=== PATIENT | female | born 1955 | race Caucasian/White ===

== ENCOUNTER 2016-05-03 16:46 | Emergency (ER) | payer BC ==
--- NOTE | 2016-05-03 17:05 | PDOC ---
Chest Pain HPI - General Chief Complaint: Respiratory Complaint Stated Complaint: LEFT SIDE PAIN/ COUGH Date Seen by Provider: 05/03/16 Time Seen by Provider: 17:05 Source: Patient Exam Limitations: POSITIVE: No limitations Treatment Prior to Arrival: REPORTS: None Nurse's Notes Reviewed & Considered: Yes - History of Present Illness Initial Comments: Patient comes today with chief complaint of left lateral chest wall pain. Patient with left lateral chest wall pain that is tender to palpation which began actually 2 days ago and is getting worse. Patient does not remember injuring her side, and has done no out of work to cause the problem. He does have a history of similar symptoms but was finally diagnosed as a pulmonary embolism a few years ago. She was on blood thinners for approximately a year at that time and is no longer on them. At this time she denies any fever or chills sweats, she does have nausea but no vomiting or diarrhea, no hematuria or dysuria, she has shortness of breath associated with pain upon respirations but no shortness of breath while sitting. She does have a cough. Body Location Affected: REPORTS: Chest Timing: REPORTS: Constant, Getting Worse Duration: >24 hours Severity: Moderate Context: REPORTS: Other (Movement) Quality: REPORTS: "Pain", Sharpness, Stabbing, Throbbing Radiation: REPORTS: None Associated Symptoms: REPORTS: Nausea Modifying Factors: improves with: Sitting up Similar Symptoms Previously: Yes Recently seen/treated/hospitalized: No Any Prior Injuries Related to Current Complaint?: No - Patient Home Medications Home Medications: Home Medications Nicotine [Nicotine Patch] 14 mg TD QD #14 patch 08/27/14 Simvastatin 1 tab PO DAILY #30 tab 06/19/15 Albuterol Sulfate [Proair Hfa] 1 - 2 puff INH Q4H #1 inhaler 02/05/16 Albuterol/Ipratropium Inhaler [Combivent Respimat Inhaler] 1 puff INH QID #1 puff 02/08/16 Aspirin 325 mg PO DAILY 05/03/16 - Patient Allergies Allergies/Adverse Reactions: Allergies Allergy/AdvReac Type Severity Reaction Status Date / Time tuberculin, purified protein Allergy HIVES Verified 05/03/16 16:57 deriva Influenza Virus Vaccines AdvReac SWELLING Verified 05/03/16 16:57 tetanus and diphtheria AdvReac SWELLING Verified 05/03/16 16:57 toxoids [tetanus \\T\\ diphtheria toxoids] Past Medical History - heen HEENT History: Denies History Cardiovascular History: Arrhythmia, DVTs, Other (please comment) Additional Cardiovasular History: a-fib when dx with blood clot lung Respiratory History: COPD, Pulmonary Embolism Additional Respiratory History: BILAT PE Gastrointestinal History: Denies History Genitourinary History: Denies History Endocrine History: Denies History Musculoskeletal History: Denies History Prosthesis or Implant: No Neurological History: Denies History Blood Disorders: Other (please comment) 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 HYSTER Anesthesia Reactions: No Malignant Hyperthermia: No Significant Family History: No pertinent family hx ROS - Limitations ROS Limitations: No Limitations Constitution: REPORTS: Denies Symptoms Cardiovascular: REPORTS: Chest Pain Respiratory: REPORTS: Cough Non Productive, Hurts To Breathe Neurological: REPORTS: Denies Neuro Symptoms Gastrointestinal: REPORTS: Nausea Endocrine: REPORTS: Denies Symptoms Musculoskeletal: REPORTS: Denies MS Symptoms Genitourinary: REPORTS: Denies Symptoms Eyes: REPORTS: Denies Symptoms ENT: REPORTS: Denies Symptoms Skin: REPORTS: Denies Skin Symptoms Lympathic: REPORTS: Denies Lympathic Symptoms Immunologic: POSITIVE: Denies Symptoms Psychiatric: POSITIVE: Anxiety Chest Pain PE - General Appearance General Appearance: REPORTS: Alert, Cooperative, No Evidence of Trauma, Anxious - HEENT HEENT: POSITIVE: Head Inspection Nml, Eyes Inspection Nml, Ears Inspection Nml, Nose Inspection Nml, PERRL, EOMI - Neck Neck: REPORTS: Normal Inspection - Respiratory Respiratory: REPORTS: No Respiratory Distress, Breath Sounds Normal, Splinting, Other (Pain on palpation of her left lateral chest wall T6 through T9.) - Cardiovascular Cardiovascular: REPORTS: Regular Rate and Rhythm, Heart Sounds Normal - Abdomen Abdomen: Soft: (All Quadrants), Normal Bowel Sounds: (All Quadrants), Denies Tenderness: (All Quadrants) - Skin Skin: REPORTS: Intact, Normal For Race, Warm, Dry, No Rash - Extremities Extremity: Non-Tender: (All Extremities), Normal ROM: (All Extremities), Normal Inspection: (All Extremities) - Neurological / Psychological Neurological: POSITIVE: Affect Apporpriate, Oriented X3 Chest Pain Progress - Results Reviewed by me Xrays/CTs/US Reviewed by me: Yes Discussed with Radiologist: Yes Lab Results Reviewed: Yes Lab Results:: Laboratory Results 05/03/16 Range/Units 17:22 WBC 7.28 (4.8-10.8) 10^3/uL RBC 4.80 (4.20-5.40) 10^6/uL Hgb 14.7 (12.0-16.0) g/dL Hct 43.8 (37.0-47.0) % MCV 91.3 (81-99) FL MCH 30.6 (27-31) PG MCHC 33.6 (33-37) g/dL RDW Std Deviation 49.4 (39-50) fL RDW Coeff of Bruce 15.0 H (11.5-14.5) % Plt Count 176 (140-350) 10*3/uL MPV 10.3 (7.4-12.2) FL Immature Gran % (Auto) 0.3 (0-5) % Neut % (Auto) 67.4 (50-80) % Lymph % (Auto) 21.8 (10-50) % Lander % (Auto) 8.0 (5-15) % Eos % (Auto) 2.1 (0-8) % Baso % (Auto) 0.4 (0-1) % Immature Gran # (Auto) 0.02 10*3/UL Neut # (Auto) 4.91 10*3/UL Lymph # (Auto) 1.59 10*3/uL Lander # (Auto) 0.58 (0.3-0.8) 10*3/UL Eos # (Auto) 0.15 10*3/UL Baso # (Auto) 0.03 10*3/UL WBC Morphology Comment Normal morphology (NORM) Plt Morphology Comment Normal morphology (NORM) RBC Morph Comment Normal morphology (NORM) ESR 20 (0-20) MM/HR PT 10.6 (9.7-11.4) secs INR 1.03 (0.00-5.90) N/A D-Dimer 0.65 H (0.00-0.59) mg/L VBG pH 7.43 H (7.32-7.42) VBG pCO2 44 L (45-55) mmHg VBG HCO3 29 H (22-26) mmol/L VBG Base Excess 4 H (-2-2) MMOL/L Sodium 139 (135-145) meq/L Potassium 4.7 (3.8-5.2) meq/L Chloride 104 (98-112) meq/L Carbon Dioxide 26 (23-33) meq/L Anion Gap 9 (5-20) BUN 23 H (7-22) mg/dL Creatinine 0.9 (0.50-1.20) mg/dL Estimated GFR > 60 (>60 ml/min/1.73m(2)) BUN/Creatinine Ratio 25.55 H (6-20) Glucose 96 (78-110) mg/dL Calculated Osmolality 291.0 (267-292) mOsm/kg Lactic Acid < 0.5 L (0.70-2.10) MMOL/L Calcium 9.7 (8.7-10.7) mg/dL Magnesium 2.0 (1.6-2.4) mg/dL Total Bilirubin 0.6 (0.3-1.2) mg/dL AST 26 (8-39) IU/L ALT 29 (9-52) IU/L Alkaline Phosphatase 90 (38-126) IU/L Troponin I < 0.012 (< 0.040) ng/mL C-Reactive Protein 5.5 H (0.0-0.9) mg/dL NT-Pro-B Natriuret Pep 208 H (0-125) PG/ML Total Protein 7.4 (6.1-8.0) g/dL Albumin 4.3 (3.5-4.8) g/dL Globulin 3.1 (2.50-4.10) g/dL Albumin/Globulin Ratio 1.30 (1.3-2.0) mg/g EKG Interpretation:: POSITIVE: Normal Sinus Rhythm - Patient's Progress Pain Medication Addressed: POSITIVE: Yes Re-Examine Time: 18:55 Status: POSITIVE: Improved MDM / ED Course: The patient was examined, blood drawn and sent to the lab for studies, CT scan of her chest was obtained. Patient received Toradol, Zofran, normal saline. Her rib pain significantly improved. She did have an episode of nausea. She had an episode of hypoxia. Her oxygen saturations dropped into the 87% range. Patient is noted to be a heavy smoker for 40 years, presently down to a pack a day. Findings: CT scan shows no acute cardiopulmonary processes. CBC shows a normal white count. D-dimer is slightly elevated at 0.6. C-reactive protein is elevated at 5.5, ESR is normal at 20, BNP is elevated at 208. Assessment: Rib pain most likely related to costochondritis. Plan: Discharge home on NSAIDs, [place] for breakthrough pain. Follow up with primary care physician. Quality Measure Initiative: CP/AMI: POSITIVE: EKG - Consult Counseled: POSITIVE: Patient, RE: Lab Results, RE: Radiology Results, RE: DX, RE : Need for F/U Patient Care Time - Estimated PCT Patient Care Time (In Minutes): 30 Vital Signs - Recent Vital Signs Vital Signs: Vital Signs (Last 8 hours) Temp Pulse Pulse Resp BP Pulse Ox 05/03/16 17:34 67 05/03/16 16:46 96.9 F 74 19 137/79 94 - VS Reviewed Vital Signs Reviewed: Yes Discharge Clinical Impression: Rib pain on left side Discharge Disposition: Discharged to Home Condition: Stable Patient Instructions Given at Discharge: Costochondritis (ED)
[2016-05-03 17:11] VITALS: TEMP 96.9
[2016-05-03] MEDS ORDERED: Sodium Chloride 0.9% 1,000 ML PRIMARY IV ONE (17:12)
[2016-05-03] MEDS ORDERED: KETOROLAC 30 MG/1 ML VIAL IVP ONE (17:12)
[2016-05-03] MEDS ORDERED: ONDANSETRON 4 MG/2 ML VIAL IVP ONE ×2 (17:12→18:53)
[2016-05-03 17:30] LABS: BASOPHILS # (AUTO) 0.03 10*3/UL; BASOPHILS % (AUTO) 0.4 % (0-1); EOSINOPHILS % (AUTO) 2.1 % (0-8); HEMATOCRIT 43.8 % (37.0-47.0); HEMOGLOBIN 14.7 g/dL (12.0-16.0); IMM GRAN % (AUTO) 0.3 % (0-5); IMM GRAN# (AUTO) 0.02 10*3/UL; LYMPHOCYTES # (AUTO) 1.59 10*3/uL; LYMPHOCYTES % (AUTO) 21.8 % (10-50); MEAN CORPUSCULAR HEMOGLOBIN 30.6 PG (27-31); MEAN CORPUSCULAR HGB CONC 33.6 g/dL (33-37); MEAN PLATELET VOLUME 10.3 FL (7.4-12.2); MONOCYTES # (AUTO) 0.58 10*3/UL (0.3-0.8); NEUTROPHILS # (AUTO) 4.91 10*3/UL; NEUTROPHILS % (AUTO) 67.4 % (50-80); WHITE BLOOD COUNT 7.28 10^3/uL (4.8-10.8)
[2016-05-03 17:33] LABS: PLATELET MORPHOLOGY COMMENT NORMAL MORPHOLOGY (NORM)
[2016-05-03 17:44] LABS: ASPARTATE AMINO TRANSFERASE 26 IU/L (8-39); BILIRUBIN,TOTAL 0.6 mg/dL (0.3-1.2); BLOOD UREA NITROGEN 23 mg/dL (7-22); BUN/CREATININE RATIO 25.55 (6-20); C-REACTIVE PROTEIN 5.5 mg/dL (0.0-0.9); CALCIUM 9.7 mg/dL (8.7-10.7); CHLORIDE 104 meq/L (98-112); CREATININE 0.9 mg/dL (0.50-1.20); EST GLOMERULAR FILTRATION > 60 (>60 ml/min/1.73m(2)); GLUCOSE 96 mg/dL (78-110); POTASSIUM 4.7 meq/L (3.8-5.2); SODIUM 139 meq/L (135-145); TOTAL PROTEIN 7.4 g/dL (6.1-8.0)
[2016-05-03 17:50] LABS: NT-PRO BNP 208 PG/ML (0-125); PROTHROMBIN TIME 10.6 secs (9.7-11.4)
--- NOTE | 2016-05-03 17:54 | EKG ---
[address] [place] [address] Measurements Intervals [place] Rate: 67 P: 97 MD: 180 QRS: -44 QRSD: 108 T: 50 QT: 406 QTc: 422 Interpretive Statements SINUS RHYTHM MARKED LEFT AXIS DEVIATION LEFT ANTRIOR FASICULAR BLOCK Compared to ECG 07/25/2014 16:21:55 Left-axis deviation now present Atrial fibrillation no longer present ST (T wave) deviation no longer present Electronically Signed On 05-04-16 14:03:25 [facility] by Arnel Bello [email or web address]
[2016-05-03 18:10] LABS: ERYTHROCYTE SEDIMENTATION RATE 20 MM/HR (0-20)
--- NOTE | 2016-05-03 18:40 | DI ---
CT ANGIOGRAM OF THE CHEST, 05/03/2016 5:12 PM : Clinical History: Left lateral chest wall pain with previous history of pulmonary emboli. Previous Exam: 07/25/2014. Scans are performed from the base of the neck to the lower lung bases following IV administration of 95 mL of Isovue 300. Proprietary automated bolus tracking software was not used to verify the timing of the injection. The base of the neck and thoracic inlet are normal. There are no abnormal axillary, supraclavicular, mediastinal, or hilar nodes. The heart is normal. The pulmonary arteries are normal. There is no pulm onary arterial hypertension. There is no evidence of pulmonary embolism or pulmonary infarction. The emboli visualized on the previous study have resolved without sequela. The lungs are clear and there are no pulmonary nodules or masses. Both adrenal glands and the spleen and visualized portions of the pancreas are normal. The liver appears to be of low density and may have fatty infiltration. READIN. Normal CTA of the chest. There are no pulmonary emboli or pulmonary infarcts. The previous study showed extensive pulmonary emboli to all branches of the right lung and 2 branches of the left upper lobe and left lower lobe. These have completely resolved. 2. There may be fatty infiltration of the liver.
[2016-05-03 21:05] VITALS: RESP 18
== END 2016-05-03 19:17 | disposition home or self-care (01) ==
LOC: ER 16:46
DX: R07.89 Other chest pain (principal); R05 Cough; R11.0 Nausea; Z86.718 Personal history of other venous thrombosis and embolism
CPT/HCPCS: 36415; 71260; 80053; 82803; 83605; 83735; 83880; 84484; 85025; 85379; 85610; 85652; 86140; 93005; 93010; 96374; 96375; 96376; 99284 ×2; J1885; J2405; J7030

== ENCOUNTER → 2016-05-25 | Outpatient (CLI) | payer BC | LOC: LAB 05:46 | PROVIDERS: ATTEND Family Medicine | DX: E53.8 Deficiency of other specified B group vitamins (principal); E55.9 Vitamin D deficiency, unspecified; R53.83 Other fatigue; E78.5 Hyperlipidemia, unspecified; Z71.6 Tobacco abuse counseling; F17.210 Nicotine dependence, cigarettes, uncomplicated | CPT/HCPCS: 36415; 82607 ==

== ENCOUNTER → 2016-09-09 | Outpatient (CLI) | payer BC ==
--- NOTE | 2016-09-11 22:35 | DI ---
XR FOOT COMPLETE MIN 3VW WB,09/09/2016 3:33 PM: Clinical History: Left heel pain. Previous Exam: None at this facility. Findings: AP lateral and oblique views of the left foot are obtained, and demonstrate anatomic alignment withou t fractures. There is enthesopathy involving the insertion of the plantar fascia. The surrounding sof t tissues are unremarkable. There is a hallux valgus deformity noted. On the AP view, view, there appears to be an old fracture through the left fifth proximal phalanx. Th is was not seen on the lateral or oblique view. Impression: 1. Densities out the at the insertion of the plantar fascia. This could represent underlying plantar fasciitis. 2. Hallux valgus. 3. Possible old fracture through the left fifth proximal phalanx.
== END ==
LOC: MOB RAD 15:35
PROVIDERS: ATTEND Podiatrist Foot & Ankle Surgery
DX: M79.672 Pain in left foot (principal); M20.12 Hallux valgus (acquired), left foot
CPT/HCPCS: 73630